=== PATIENT | male | born 2000 | race Caucasian/White ===

== ENCOUNTER 2025-07-02 10:38 | Emergency (ER) | payer BC, SELFPAY ==
[2025-07-02 10:49] VITALS: BP 125/70
[2025-07-02 11:37] VITALS: BMI 23.1
--- NOTE | 2025-07-02 13:09 | ED.GENMED ---
History of Present Illness
General
Chief Complaint: Urinary Symptoms
Time Seen by Provider: 07/02/25 12:13
History of Present Illness
History of Present Illness:
See MDM
Past History
Past History
ED Past Medical History: Other (Autism, constipation)
Social History
Tobacco: Non-smoker
Personal: Single
Living: with family
Employment: Disabled
Phy Exam
Physical Exam
Physical Exam:
See MDM
Course
Orders/Labs/Results
Orders:
Orders
07/02/25 12:27
Urinalysis Urgent
Date Specimen was Collected: 07/02/25
Time Specimen was Collected: 12:26
Chlamydia/GC by PCR Urgent
[facility] Source: Urine
Specimen Description:
Source:: URINE
Date Specimen was Collected: 07/02/25
Time Specimen was Collected: 12:26
Urine Culture Urgent
LUZMARIA Source: Urine
Specimen Description:
Obtained by: Random
Date Specimen was Collected: 07/02/25
Time Specimen was Collected: 12:26
07/02/25 13:08
Fluconazole [Diflucan] 150 mg PO NOW STA
Tamsulosin [Flomax] 0.4 mg PO NOW STA
Vital Signs
Initial and Last Documented VS:
Initial Vital Signs
Temp Pulse Resp BP Pulse Ox
98.2 F 89 18 125/70 99
07/02/25 10:49 07/02/25 10:49 07/02/25 10:49 07/02/25 10:49 07/02/25 10:49
Last Documented Vital Signs
Temp Pulse Resp BP Pulse Ox
98.2 F 89 18 125/70 99
07/02/25 10:49 07/02/25 10:49 07/02/25 10:49 07/02/25 10:49 07/02/25 10:49
MDM/Problems Addressed
Differential Diagnosis Includes:
Note:
CHIEF COMPLAINT(S)
Dysuria and urinary frequency.
HISTORY OF PRESENT ILLNESS
The patient is a 24-year-old male presenting with dysuria and increased urinary frequency. Approximately three weeks ago, the patient visited an urgent care facility with similar complaints, notably irritation at the tip of the penis, described as
'irritated, inflamed, and rashy.' Urinalysis and urine cultures at the time were negative for a urinary tract infection (UTI), leading to a diagnosis of balanitis and treatment with a topical cream, which improved the inflammation but did not
alleviate the urinary symptoms. The patient continues to experience pain while urinating and an urgency to urinate, sometimes without the ability to void, and reported urinating approximately ten times in one night. Notably, the urinary stream
issues, characterized by difficulties in maintaining a continuous stream, date back to the onset of the rash.
The patient denies any sexual activity and thus the likelihood of sexually transmitted infections such as gonorrhea or chlamydia is low, though testing has been ordered. The patient is scheduled to consult with a urologist. It is suggested that they
may suffer from urethritis or a urethral stricture, as infection has been repeatedly ruled out.
Previous evaluation and management by the family physician included a prescription of cephalexin. Discussed next steps include possible evaluation by urology involving cystoscopy to visually inspect the urethra and bladder.
PAST MEDICAL AND SURGICAL HISTORY
No past surgical history was mentioned.
CHRONIC MEDICAL CONDITIONS SIGNIFICANTLY AFFECTING CARE
Chronic conditions affecting care include psychiatric history with ongoing medication management.
SOCIAL DETERMINANTS OF HEALTH
The patient is employed, works in stock sales, and regularly attends the gym, leading to significant sweating, which may have been an aggravating factor for the initial penile irritation.
PHYSICAL EXAM
General: Alert, no acute distress.
Skin: Warm, dry.
Head: Normocephalic, atraumatic
Neck: Appears supple, trachea midline.
Eyes, Ears, Nose, Mouth, and Throat: Moist mucous membranes
Cardiovascular: No signs of cyanosis
Respiratory: Respirations are non-labored.
Abdomen: Non-distended
: Within normal limits. No discharge. No rash.
Musculoskeletal: No deformities
Neurological: No focal neurological deficit observed.
Psychiatric: Cooperative, appropriate mood and affect.
PLAN
The patient is scheduled for a urology appointment to further investigate possible urethritis or urethral stricture. This will likely involve urethroscopy or cystoscopy for direct visualization of the urethra and bladder.
DIFFERENTIAL DIAGNOSIS
The Differential Diagnosis includes, in no particular order and is not limited to:
- Urethritis
- Urethral stricture
- Residual inflammation from balanitis
- Non-infectious prostatitis
- Bladder dysfunction
- Overactive bladder
- Neurogenic bladder
- Interstitial cystitis
- Urethral trauma
- Urinary retention
MEDICATION RECONCILIATION
- Cephalexin (prescribed by family physician)
- Fluoxetine
- Melatonin
- Sucralfate
- Docusate
- Multi-vitamin supplements
MEDICAL DECISION MAKING
- Number and Complexity of Problems Addressed:
Chronic conditions affecting care include psychiatric history.
Differential diagnoses considered include urethritis, urethral stricture, residual balanitis inflammation, non-infectious prostatitis, bladder dysfunction, overactive bladder, neurogenic bladder, interstitial cystitis, urethral trauma, and urinary
retention.
- Data:
Category 1
- Non-emergency department records reviewed, including previous negative urine cultures and persistent symptoms.
Category 2
- Input from patient�s family doctor regarding prior treatment and lack of improvement with cephalexin.
Category 3
- Patient scheduled for further evaluation with a urologist for potential cystoscopy, pending their input and assessment.
- Risk:
Prescription medication was prescribed. Care significantly affected by Social Determinants of Health due to the patients employment and lifestyle potentially exacerbating his symptoms.
DIAGNOSIS
- Urethritis, unspecified (N34.1)
- Balanitis (N48.1)
- Urinary frequency, unspecified (R35.0)
The patient�s name was not included in the note, and all references to family members were anonymized to maintain patient confidentiality.
Disposition:
SUMMARY OF ENCOUNTER
The patient presented with dysuria and increased urinary frequency. Symptoms pointed towards possible urethritis or urethral stricture, given the negative results for urinary tract infection in previous tests. Urology was consulted to address these
persistent symptoms. The decision was made to start the patient on tamsulosin (Flomax) to help with urinary flow issues. There was also concern for fungal urethritis, prompting the administration of a one-time dose of fluconazole for potential
fungal infection.
ASSESSMENT
The patient possibly has urethritis or a urethral stricture based on the urinary symptoms and previous tests. A fungal component is also a consideration based on prior balanitis.
EMERGENCY TREATMENTS ADMINISTERED
A one-time dose of fluconazole was administered for suspected fungal urethritis.
PLAN
Start the patient on tamsulosin to help manage urinary flow issues. Continue monitoring symptoms, especially in relation to urethritis or urethral stricture, and follow up with urology as scheduled.
MEDICATION RECONCILIATION
1. Fluconazole - One-time dose administered for fungal urethritis.
2. Tamsulosin - Initiated for urinary symptoms as per urology recommendation.
MEDICAL DECISION MAKING
- Number and Complexity of Problems Addressed: Chronic conditions affecting care include psychiatric history. Differential diagnoses considered include urethritis, urethral stricture, residual balanitis inflammation, non-infectious prostatitis,
bladder dysfunction, overactive bladder, neurogenic bladder, interstitial cystitis, urethral trauma, and urinary retention.
- Data:
Category 1: Non-emergency department records reviewed. External record reviewed from previous negative urine cultures and the patients urology consultations.
Category 3: Discussion of management with urology about the treatment plan including Flomax and the administration of fluconazole.
DIAGNOSIS
- Urethritis, unspecified (N34.1)
- Balanitis (N48.1)
- Urinary frequency, unspecified (R35.0)
*Pulse Oximetry
SaO2: 99
Oxygen Mode of Delivery: Room air
Patient hypoxic: no
*Critical Care Note
Total Time (30-74mins, 75-104mins- exclusive of procedures): Not Applicable
ED Attending Note
-
Portions of this chart may have been created with voice recognition software.� Occasional wrong word or��sound alike� substitutions may have occurred due to the inherent limitations of voice recognition software.
Discharge Plan
Departure
Patient Disposition: Home (Routine Discharge)
Date of Disposition: 07/02/25
Time of Disposition: 13:09
Patient with high blood pressure during this ER visit?: No
Discharge Problem:
Urine troubles
Prescriptions:
New
tamsulosin [Flomax] 0.4 mg capsule
0.4 mg PO DAILY Qty: 7 0RF
No Action
escitalopram oxalate 10 MG tablet
25 mg PO DAILY
quetiapine [Seroquel XR] 50 MG tablet extended release 24 hr
100 mg PO DAILY
quetiapine 50 MG tablet extended release 24 hr
50 mg PO PRN PRN (Reason: 'washburn')
guanfacine 1 MG tablet extended release 24 hr
1 mg PO DAILY
lactulose [Constulose] 10 GM/15 ML solution
10 gm PO BID Qty: 300 0RF
Referrals:
Paul Martinez MD [Family Provider, Family Practice]
Activity Restrictions/Additional Instructions:
Please return for any worsening symptoms.
You may return at any time if you have further concerns.
Please keep your follow-up appointment with the urologist.
Thank you for choosing [facility].
Interventions
Interventions:
*Risk Screen - Suicide Last Done: 07/02/25 10:49
*General Assessment Last Done: 07/02/25 10:49
ED-Male Genitourinary Assessment Last Done: 07/02/25 11:37
Discharge Date and Time
Print Language: BELARUSIAN
[2025-07-02 13:14] LABS: Urine Character Cloudy (Clear)
[2025-07-02] MEDS: DIFLUCAN 150 MG PO (13:14)
[2025-07-02] MEDS: FLOMAX 0.4 MG PO (13:14)
== END 2025-07-02 13:25 | disposition home or self-care (01) ==
LOC: EMR 10:38
PROVIDERS: EMERGENCY PHYSICIAN Student in an Organized Health Care Education/Training Program; FAMILY PHYSICIAN Family Medicine
DX: R35.0 Frequency of micturition (principal); F84.0 Autistic disorder
CPT/HCPCS: 99283; 81003; 87086; 87491; 87591